=== PATIENT | female | born 1960 | race Caucasian/White ===

== ENCOUNTER 2023-04-30 09:48 | Emergency (ER) | payer BC, SELFPAY ==
--- NOTE | ~2023-04-30 | CT_ITS ---
EXAMINATION: CT thoracic spine wo con DATE: 04/30/2023 10:28 INDICATION: Fall down 3 stairs, striking head. Upper back pain. TECHNIQUE: Computed tomography (CT) of the thoracic spine was performed without intravenous contrast. Automated exposure control and iterative reconstruction technique were employed. Exam dose: 1364.28 mGy-cm total exam DLP. COMPARISON: None FINDINGS: There is severe degenerative disc disease at C5-6 and moderately severe degenerative diseas e at C6-7 and C7-T1. There is degenerative spurring of the thoracic spine. No fracture or dislocation or locked facet of the thoracic spine is noted. IMPRESSION: Degenerative changes of the lower cervical and thoracic and upper lumbar spine No thoracic spine recent fracture is detected Reviewed, dictated and finalized at [facility] Reviewed, dictated and finalized at [facility].
--- NOTE | ~2023-04-30 | CT_ITS ---
EXAMINATION: CT brain wo con DATE: 04/30/2023 10:27 INDICATION: Patient fell down 3 steps, striking head on concrete. Upper back pain. Increased weakness . TECHNIQUE: Computed tomography (CT) of the head was performed without intravenous contrast. The mA wa s adjusted according to patient size. Iterative reconstruction technique was employed. Exam dose: 60 5.33 mGy-cm total exam DLP. COMPARISON: None FINDINGS: There are multiple hypoattenuating lesions of the left and right cerebellum, left temporal lobe, right occipital lobe, bilateral frontal and parietal lobes. No intracranial hemorrhage or midline shift is noted. No subdural or epidural hematoma. No fracture or bone destruction of the cranial vault. Included paranasal sinuses and the mastoid air cells appear normally developed and aerated. IMPRESSION: Multiple bilateral cerebellar and cerebral hypoattenuating lesion suggesting metastases. History of lung cancer. Reviewed, dictated and finalized at [facility] Reviewed, dictated and finalized at [facility].
--- NOTE | ~2023-04-30 | CT_ITS ---
EXAMINATION: CT cervical spine wo con DATE: 04/30/2023 10:28 INDICATION: Fall today. History of lung cancer with brain involvement TECHNIQUE: Computed tomography (CT) of the cervical spine was performed without intravenous contrast. Automated exposure control and iterative reconstruction technique were employed. Exam dose: 451.58 mGy-cm total exam DLP. COMPARISON: None FINDINGS: There is a reversal cervical curvature which are which may be due to positioning and/or mus maxi spasm. There is minimal anterolisthesis exists at C2-3 and C3-4 and C4-5. There is severe degenerative disc disease at C5-6. There is moderately severe degenerative disc disease at C6-7 and C7-T1. There is degenerative change at the apophyseal joints, especially prominent on the left at C3-4 and C 4-5 on the right at C2-3. Uncovertebral joint spurring is noted in particular, C5-6 and C6-7. No fracture or dislocation or locked facet or prevertebral soft tissue swelling is detected. Normal alignment at the temporal mandibular joints. IMPRESSION: Reversal of cervical curvature; no fracture or dislocation or locked facet Cervical spondylosis, most severe at C5-6 and C6-7 Reviewed, dictated and finalized at [facility] Reviewed, dictated and finalized at [facility]. IMPRESSION: Reversal of cervical curvature; no fracture or dislocation or lock ed facet Cervical spondylosis, most severe at C5-6 and C6-7
[2023-04-30 09:48] VITALS: BP 121/67; PULSE 110; RESP 18; TEMP 36.3; O2SAT 99
[2023-04-30] MEDS: KETOROLAC 30 MG/ML VIAL (*BKC) IM (10:09)
--- NOTE | 2023-04-30 10:34 | ED.FALL ---
HPI - Fall General Chief Complaint: Fall Stated Complaint: fall; head injury Time Seen by Provider: 04/30/23 09:51 Source: patient and family Mode of arrival: wheelchair Limitations: no limitations History of Present Illness HPI Narrative: this is a 63-year-old female with history of lung cancer with Mets to her brain that was doors and did fall backwards striking her head concrete complaining of headache neck pain and upper back pain unsure of loss of consciousness currently no blurry vision no nausea or vomiting no other injuries no lacerations no hematomas. No neurological deficits. complaint: fall Onset (ago): hour(s) Fall from: standing Fall witnessed: yes, by family Place fall occurred: street Loss of consciousness: unsure Prolonged down time: no Symptoms prior to fall: none Context: tripped/slipped Location of injury: head, neck and back Severity: moderate Severity scale (1-10): 6 Related Data Home Medications Medication Instructions Recorded Confirmed Unable to Obtain Home Medications 04/30/23 04/30/23 Allergies Allergy/AdvReac Type Severity Reaction Status Date / Time No Known Allergies Allergy Verified 04/30/23 09:53 Review of Systems Review of Systems: All systems reviewed & are unremarkable except as noted in HPI and below PMFSH Past Medical History Medical History Lung cancer metastatic to brain Exam Const: General: no acute distress Nutritional Appearance: obese Orientation/consciousness: patient oriented x3 Limitations: no limitations HENMT: Head: normal to inspection Ears: external ears normal Face/Nose/Sinus: Normal external nose present Face and sinus: normal facial exam Eyes: Conjunctivae: conjunctivae normal Pupils: Equal, round and reactive pupils present EOM: EOMs intact bilaterally Direct Ophthalmoscopy: no photophobia Neck: Neck: normal visual inspection, no lymphadenopathy and no meningeal signs Chest: Chest palpation & inspection: normal inspection of the chest Resp: Effort & Inspection: normal respiratory effort Auscultation: clear to auscultation bilaterally Cardio: Rate: regular rate Rhythm: regular rhythm GI: GI Palp: Yes Soft to palpation Back/Spine/Pelvis: Back: no CVA tenderness Skin: General skin exam: normal color Rashes: no rashes Wounds: no wounds Neuro: General: patient oriented x3, moves all extremities, no meningeal signs, no focal motor deficits and CN's II-XI intact bilaterally Cranial nerves: Yes Nystagmus not present Speech: normal speech Extrem: General: normal to inspection Psych: Mental Status: mental status grossly normal Affect: normal affect Course Course Emergency Course: patient received Toradol for pain and symptoms have improved, scans and reviewed with no acute intracranial abnormality, no back or neck injury acutely on CT scans. Vital Signs Vital signs: Vital Signs Temperature 36.3 C L 04/30/23 09:48 Pulse Rate 110 H 04/30/23 09:48 Respiratory Rate 18 04/30/23 09:48 Blood Pressure 121/67 04/30/23 09:48 Pulse Oximetry 99 04/30/23 09:48 Oxygen Delivery Room Air 04/30/23 09:48 Temperature 36.3 C L 04/30/23 09:48 Pulse Rate 110 H 04/30/23 09:48 Respiratory Rate 18 04/30/23 09:48 Blood Pressure 121/67 04/30/23 09:48 Pulse Oximetry 99 04/30/23 09:48 Oxygen Delivery Room Air 04/30/23 09:48 Critical Care Time Critical Care Time Critical Care Time: No Discharge Plan Discharge Clinical Impression: Cervical muscle strain Patient Disposition: Home, Self-Care Condition: Stable Instructions: Antibiotic Form, Head Injury (ED), Muscle Strain (ED) Prescriptions: No Action Unable to Obtain Home Medications Follow-up/Referrals: Sindi Goddard, [Primary Care Provider] -
[2023-04-30 11:19] VITALS: BP 112/62; PULSE 95; RESP 16; O2SAT 98
[2023-04-30 11:21] VITALS: TEMP 36.3
== END 2023-04-30 11:30 | disposition home or self-care (01) ==
PROVIDERS: Emergency Provider Emergency Medicine
DX: S16.1XXA Strain of muscle, fascia and tendon at neck level, initial encounter (principal); C34.90 Malignant neoplasm of unspecified part of unspecified bronchus or lung; C79.31 Secondary malignant neoplasm of brain; W18.39XA Other fall on same level, initial encounter; Y92.410 Unspecified street and highway as the place of occurrence of the external cause
CPT/HCPCS: 70450; 72125; 72128; 96372; 99284; J1885

== ENCOUNTER 2023-05-31 15:06 | Emergency (ER) | payer BC, SELFPAY ==
[2023-05-31] VITALS (20 sets, daily range): BP systolic 96–131; BP diastolic 58–95; PULSE 86–108; RESP 17–22; TEMP 36.6; O2SAT 96–100
--- NOTE | 2023-05-31 15:11 | ED.SEIZURE ---
HPI - Seizure General Chief Complaint: Altered Mental Status Stated Complaint: unresponsive episode Time Seen by Provider: 05/31/23 15:10 Source: patient, EMS and RN notes reviewed Mode of arrival: EMS Limitations: no limitations History of Present Illness HPI Narrative: patient brought in by EMS. She was found unresponsive. She has a history of metastatic brain cancer with multiple lesions. She has not had a seizure up until now. EMS reports that on their arrival she was foaming at the mouth and was very confused as if in a postictal state. Seizure was not witnessed but suspected due to EMS observations. MD complaint: seizure Onset (ago): minute(s) (30) Description of Episode: loss of consciousness Witnessed: No Trauma: No Seizure History: No Place: home Possible Precipitating Event: other ( metastatic cancer) Associated symptoms: confusion Treatments prior to arrival: none Related Data Home Medications Medication Instructions Recorded Confirmed albuterol sulfate 90 mcg/actuation 2 puff inhalation Q4-6H 05/31/23 05/31/23 aerosol inhaler amlodipine 10 mg tablet 10 mg PO DAILY 05/31/23 05/31/23 atorvastatin 40 mg tablet 40 mg PO DAILY 05/31/23 05/31/23 famotidine 20 mg tablet 20 mg PO BID 05/31/23 05/31/23 fluticasone propionate 45 2 puff inhalation DAILY 05/31/23 05/31/23 mcg-salmeterol 21 mcg/actuation HFA inhaler (Advair HFA) folic acid 1 mg tablet 1 mg PO DAILY 05/31/23 05/31/23 isosorbide mononitrate 30 mg 30 mg PO DAILY 05/31/23 05/31/23 tablet,extended release 24 hr montelukast 10 mg tablet 10 mg PO HS 05/31/23 05/31/23 ondansetron HCl 8 mg tablet 8 mg PO DAILY 05/31/23 05/31/23 potassium chloride 20 mEq 20 meq PO BID 05/31/23 05/31/23 tablet,extended release(part/cryst) (Klor-Con M) sertraline 100 mg tablet 100 mg PO DAILY 05/31/23 05/31/23 Allergies Allergy/AdvReac Type Severity Reaction Status Date / Time No Known Allergies Allergy Verified 05/31/23 15:16 Review of Systems Review of Systems: All systems reviewed & are unremarkable except as noted in HPI and below PMFSH Past Medical History Medical History Lung cancer metastatic to brain Exam Const: General: no acute distress, alert and ill appearing chronically Nutritional Appearance: well nourished and obese Orientation/consciousness: patient oriented x3 Limitations: no limitations HENMT: Head: normal to inspection Ears: external ears normal Face/Nose/Sinus: Normal external nose present Face and sinus: normal facial exam Mouth: Yes moist mucous membranes Eyes: Conjunctivae: conjunctivae normal Pupils: Equal, round and reactive pupils present EOM: EOMs intact bilaterally Neck: Neck: normal visual inspection Resp: Effort & Inspection: normal respiratory effort Auscultation: clear to auscultation bilaterally Cardio: Rate: regular rate Rhythm: regular rhythm GI: GI Palp: Yes Soft to palpation and No Tenderness to palpation present (GI) Auscultation: normal bowel sounds Back/Spine/Pelvis: Cervical Spine: cervical ROM normal Thoracic/Lumbar Spine: thoraco-lumbar ROM normal Skin: General skin exam: normal color Rashes: no rashes Neuro: General: patient oriented x3, moves all extremities, no focal motor deficits and CN's II-XI intact bilaterally Speech: normal speech Gait exam (Neuro): Normal gait present Extrem: General: normal to inspection and no clubbing, cyanosis or edema Psych: Appearance: grossly normal and well kempt Mental Status: mental status grossly normal Affect: normal affect Attitude: cooperative MDM - Seizure Differential Diagnosis Differential diagnosis: Likely intractable seizure disorder, generalized seizure, new onset seizure and other ( anemia, electrolyte abnormality,) Discharge Plan Discharge Clinical Impression: Seizure disorder, Hypokalemia Patient Disposition: Home, Self-Care Condition: Improved Instructions: Hypok
[2023-05-31 15:48] LABS: Hematocrit 20.6 % (35.0-49.0); Mean Corpuscular Hemoglobin 30.8 pg (27.0-31.0); Mean Corpuscular Volume 90.7 fL (78.0-102.0); Mean Platelet Volume 8.6 fl (9.2-11.8); Red Blood Count 2.27 M/mm3 (4.20-5.40); Red Cell Distribution Width 18.8 % (11.6-14.4)
[2023-05-31] MEDS: levETIRAcetam 1000MG/NACL100ML 1,000 MG/100 ML BAG 400 MG IVPB (15:48)
[2023-05-31 15:49] LABS: White Blood Count 1.3 K/mm3 (4.8-10.8)
[2023-05-31 15:50] LABS: Platelet Count Result 13 K/mm3 (150-420)
[2023-05-31 15:58] LABS: Alanine Aminotransferase 71 U/L (14-59); Alkaline Phosphatase 97 U/L (46-116); Anion Gap 11 mmol/L (8-16); Aspartate Amino Transferase 31 U/L (15-37); Blood Urea Nitrogen 17 mg/dL (7-18); CRP 3.7 mg/dL (0.0-0.9); Calcium 8.8 mg/dL (8.5-10.1); Carbon Dioxide 30 mmol/L (21-32); Chloride 99 mmol/L (98-108); Estimated CRCL calculation 57 ml/min; Estimated Glomerular Filt Rate > 60; Glucose 125 mg/dL (70-99); Magnesium 1.4 mg/dL (1.8-2.4); Osmolality Calculated 292 mOsm/kg (285-295); Sodium 140 mmol/L (136-145)
[2023-05-31 16:00] LABS: Potassium 2.5 mmol/L (3.5-5.1)
[2023-05-31 16:05] LABS: Band Neutrophils Percent 0 % (0-6); Basophils Percent Manual 0 % (0-1); Eosinophils Percent Manual 0 % (1-6); Lymphocytes Absolute Manual 0.49 K/mm3 (1.1-4.5); Lymphocytes Percent Manual 38 % (18-44); Monocytes Absolute Manual 0.02 K/mm3 (0.1-0.90); Monocytes Percent Manual 2 % (3-9); Neutrophils Absolute Manual 0.78 K/mm3 (1.7-7.2); Neutrophils Percent Manual 60 % (46-73); Nucleated Red Blood Cells 2 %; Platelet Estimate Decreased (Adequate); Total Cells Counted 100
[2023-05-31] MEDS: POTASSIUM BICARBONATE 25 MEQ TABEF 50 MEQ PO (16:47)
[2023-05-31] MEDS: HEPARIN SODIUM LOCK FLUSH 500 UNITS/5 ML SYRINGE (16:53)
== END 2023-05-31 17:10 | disposition home or self-care (01) ==
PROVIDERS: Emergency Provider Emergency Medicine; PCP Nurse Practitioner
DX: G40.909 Epilepsy, unspecified, not intractable, without status epilepticus (principal); E87.6 Hypokalemia; C34.90 Malignant neoplasm of unspecified part of unspecified bronchus or lung; C79.31 Secondary malignant neoplasm of brain; Z79.51 Long term (current) use of inhaled steroids
CPT/HCPCS: 36415; 80053; 83735; 85025; 86140; 99282; 99283; 99284; A9270; J1953